=== PATIENT | female | born 1955 | race Caucasian/White ===

== ENCOUNTER 2016-07-31 09:44 | Outpatient (CLI) | payer BC | END 2016-07-31 09:45 | disposition home or self-care (01) | DX: M16.0 Bilateral primary osteoarthritis of hip (principal); M25.551 Pain in right hip ==

== ENCOUNTER 2016-10-15 07:51 | Day surgery (SDC) | payer BC ==
[2016-10-15] MEDS ORDERED: LACTATED RINGERS 1,000 ML IV ONE (09:00)
[2016-10-15] MEDS ORDERED: MIDAZOLAM 2 MG/2 ML VIAL IVP ONE (09:30)
[2016-10-15] MEDS ORDERED: fentaNYL 250 MCG/5 ML VIAL IVP ONE (09:30)
[2016-10-15] MEDS ORDERED: SIMETHICONE 40 MG/0.6 ML 30 ML BOTTLE PO ONE (09:59)
== END 2016-10-15 07:52 | disposition home or self-care (01) ==
PROC: 0DJD8ZZ Inspection of Lower Intestinal Tract, Via Natural or Artificial Opening Endoscopic (ICD-10-PCS; principal; 2016-10-15 09:00)
DX: Z12.11 Encounter for screening for malignant neoplasm of colon (principal); Z80.0 Family history of malignant neoplasm of digestive organs; K64.8 Other hemorrhoids
CPT/HCPCS: 45378; A9270; J3010; J7120

== ENCOUNTER 2017-01-16 15:01 | Outpatient (CLI) | payer BC ==
[2017-01-16 18:51] LABS: THYROID STIMULATING HORMONE 0.23 uIU/mL (0.34-5.60)
== END 2017-01-16 15:02 | disposition home or self-care (01) ==
LOC: LAB.F 15:01
PROVIDERS: ATTEND Physician Assistant Medical
DX: E05.00 Thyrotoxicosis with diffuse goiter without thyrotoxic crisis or storm (principal)
CPT/HCPCS: 36415; 84439; 84443; 84481

== ENCOUNTER 2017-02-18 11:17 | Outpatient (CLI) | payer BC ==
--- NOTE | 2017-02-18 13:02 | XRAY Report ---
TWO VIEW RIGHT SHOULDER: 02/18/2017 CLINICAL INDICATION: Pain. FINDINGS: Oblique and scapular Y views of the right shoulder demonstrate no evidence of acute fractu re or dislocation. There is calcification in the expected location of the distal supraspinatus tendon , compatible with calcific tendinitis. No radiopaque foreign body is seen in the soft tissues. IMPRESSION: LIKELY CALCIFIC TENDINITIS. JOB #: [id number] EXT JOB #:[id number]
== END 2017-02-18 11:18 | disposition home or self-care (01) ==
LOC: DI 11:17
PROVIDERS: ATTEND Physician Assistant Medical
DX: M25.511 Pain in right shoulder (principal)

== ENCOUNTER → 2017-03-25 | Outpatient (CLI) | payer BC ==
[2017-03-25 11:40] LABS: THYROID STIMULATING HORMONE 1.38 uIU/mL (0.34-5.60)
== END ==
LOC: LAB.F 17:22
PROVIDERS: ATTEND Physician Assistant Medical
DX: E05.00 Thyrotoxicosis with diffuse goiter without thyrotoxic crisis or storm (principal); Z79.899 Other long term (current) drug therapy
CPT/HCPCS: 36415; 84439; 84443; 84481

== ENCOUNTER 2017-04-10 15:27 | Outpatient (CLI) | payer BC ==
--- NOTE | 2017-04-11 10:21 | Mammography Report ---
DIGITAL SCREENING MAMMOGRAM: 04/10/2017 CLINICAL INDICATION: A 61-year-old with history of late childbearing, family history of breast cancer , history of benign left breast biopsy, for screening. COMPARISON: 12/2015, 07/2014, 06/2013, 12/2012, 05/2012, 11/2011, 04/2011, 02/2011, 02/2010. TECHNIQUE: Routine CC and MLO projections were obtained of the breasts. FINDINGS: The breasts again demonstrate heterogeneously dense fibroglandular parenchyma bilaterally. Postbiopsy changes in the left upper inner quadrant are stable. A few coarse, typically benign calci fications are present. No suspicious masses, clustered microcalcifications, or regions of architectur al distortion are identified. IMPRESSION: BENIGN FINDINGS. RECOMMENDATION: ROUTINE ANNUAL SCREENING UNLESS OTHERWISE CLINICALLY INDICATED. BIRADS CATEGORY 2-BENIGN FINDINGS. STANDARD QUALIFYING STATEMENTS 1. This examination was reviewed with the aid of Computer-Aided Detection (CAD). 2. A negative or benign imaging report should not delay biopsy if clinically suspicious findings are present. Consider surgical consultation if warranted. More than 5% of cancers are not identified by i maging. 3. Dense breasts may obscure an underlying neoplasm. JOB #: [id number] EXT JOB #:[id number]
== END 2017-04-10 15:28 | disposition home or self-care (01) ==
LOC: DI 15:27
PROVIDERS: ATTEND Physician Assistant Medical
DX: Z12.31 Encounter for screening mammogram for malignant neoplasm of breast (principal); Z80.3 Family history of malignant neoplasm of breast
CPT/HCPCS: 77067

== ENCOUNTER 2017-04-10 15:27 | Outpatient (CLI) | payer BC ==
--- NOTE | 2017-04-11 11:53 | DEXA Report ---
DEXA SCAN: 04/10/2017 CLINICAL INDICATION: Postmenopausal screening. TECHNIQUE: Dual energy x-ray absorptiometry (DXA) was performed on a YPlan system. Regions measured are the AP spine, femoral neck, and, if needed, forearm. COMPARISON: None. In accordance with the International Society for Clinical Densitometry (ISCD) guidelines, data from previous exams may be reanalyzed using current recommendations and techniques. This is done to allow a more accurate basis for comparison with the current study. FINDINGS: The data for the lumbar spine is as follows: REGION BMD (g/cm/cm) T-SCORE Z-SCORE L1 0.915 -1.8 -0.5 L2 0.959 -2.0 -0.8 L3 1.014 -1.5 -0.3 L4 1.024 -1.5 -0.2 TOTAL 0.980 -1.7 -0.4 NOTE: All evaluable vertebrae are used for classification. The data for the hip is as follows: REGION BMD (g/cm/cm) T-SCORE Z-SCORE Neck 0.787 -1.8 -0.6 TOTAL 0.786 -1.8 -0.8 NOTE: The femoral neck or total proximal femur, whichever is lowest, is used for classification. IMPRESSION: THE WHO CLASSIFICATION BASED ON THE INTERNATIONAL REFERENCE STANDARD IS OSTEOPENIA. THE FRACTURE RISK IS INCREASED. RECOMMENDATION: Patients with diagnosis of osteoporosis or osteopenia should have regular bone mineral density assessment. For those eligible for Medicare, routine testing is allowed once every 2 years. Testing frequency can be increased for patients who have rapidly progressing disease or for those who are receiving medical therapy to restore bone mass. COMMENT: World Health Organization (WHO) definitions for osteoporosis and osteopenia: NORMAL BMD: T-score at -1.0 or higher, fracture risk is low. OSTEOPENIA BMD: T-score between -1.0 and -2.5, fracture risk is increased. OSTEOPOROSIS BMD: T-score at -2.5 or lower, fracture risk high. National Osteoporosis Foundation recommends: 1. Obtain adequate dietary calcium (at least 1200 mg per day) and vitamin D (400 -800 international units per day). 2. Participate, as appropriate, in regular weightbearing and muscle- strengthening exercise. 3. Avoid tobacco use and reduce alcohol and caffeine intake. 4. For more detailed information see the website at www.NOF.org. MTDD
== END 2017-04-10 15:28 | disposition home or self-care (01) ==
LOC: DI 15:27
PROVIDERS: ATTEND Physician Assistant Medical
DX: Z13.820 Encounter for screening for osteoporosis (principal); M85.89 Other specified disorders of bone density and structure, multiple sites; Z78.0 Asymptomatic menopausal state
CPT/HCPCS: 77080

== ENCOUNTER 2017-10-09 07:25 | Outpatient (CLI) | payer OTHER ==
[2017-10-09 10:16] LABS: EOSINOPHILS # (AUTO) 0.2 10^3/uL (0.0-0.7); EOSINOPHILS % (AUTO) 3.7 %; HGB - HEMOGLOBIN 12.3 g/dL (12.0-16.0); LYMPHOCYTES # (AUTO) 1.3 10^3/uL (1.5-3.5); MEAN CORPUSCULAR HEMOGLOBIN 31.1 pg (27.0-31.0); MEAN CORPUSCULAR HGB CONC 33.5 g/dL (32.0-36.0); MEAN CORPUSCULAR VOLUME 92.7 fL (81.0-99.0); MEAN PLATELET VOLUME 8.7 fL (7.9-10.8); MONOCYTES # (AUTO) 0.5 10^3/uL (0.0-1.0); MONOCYTES % (AUTO) 11.6 %; NEUTROPHILS # (AUTO) 2.6 10^3/uL (1.5-6.6); NEUTROPHILS % (AUTO) 55.7 %; PLT - PLATELET COUNT 288 10^3/uL (130-450); RED BLOOD COUNT 3.96 10^6/uL (4.20-5.40); RED CELL DISTRIBUTION WIDTH 13.6 % (12.0-15.0); WHITE BLOOD COUNT 4.6 x10^3/uL (4.8-10.8)
[2017-10-09 10:37] LABS: ALBUMIN 4.3 g/dL (3.2-5.5); ALBUMIN/GLOBULIN RATIO 1.6 (1.0-2.2); ALKALINE PHOSPHATASE 66 IU/L (42-121); ALT ALANINE AMINOTRANSFERASE 45 IU/L (10-60); AST ASPARTATE AMINOTRANSFERASE 26 IU/L (10-42); BILIRUBIN,TOTAL 0.8 mg/dL (0.2-1.0); BUN - BLOOD UREA NITROGEN 11 mg/dL (6-20); CALCIUM 9.1 mg/dL (8.5-10.3); CARBON DIOXIDE - CO2 27 mmol/L (21-32); CHLORIDE 103 mmol/L (101-111); CHOL/HDL RATIO 2.8 (<4.4); CHOLESTEROL 220 mg/dL; CREATININE 0.7 mg/dL (0.4-1.0); GFR - MDRD 84 (>89); GLUCOSE 99 mg/dL (70-100); HDL CHOLESTEROL 79 mg/dL; LDL CHOLESTEROL,CALCULATED 132 mg/dL; LDL/HDL RATIO 1.7 (<4.4); SODIUM 137 mmol/L (135-145); VLDL CHOLESTEROL 9 mg/dL
[2017-10-09 10:43] LABS: THYROID STIMULATING HORMONE 6.7 uIU/mL (0.34-5.60)
[2017-10-09 10:45] LABS: FREE T4 (FREE THYROXINE) 0.91 ng/dL (0.58-1.64)
[2017-10-10 09:15] LABS: HEPATITIS C ANTIBODY NON-REACTIVE (NON-REACTIVE)
== END 2017-10-09 07:26 | disposition home or self-care (01) ==
LOC: LAB.F 07:25
PROVIDERS: ATTEND Physician Assistant Medical
DX: Z00.00 Encounter for general adult medical examination without abnormal findings (principal); E05.00 Thyrotoxicosis with diffuse goiter without thyrotoxic crisis or storm; Z79.899 Other long term (current) drug therapy; Z11.59 Encounter for screening for other viral diseases; Z72.89 Other problems related to lifestyle
CPT/HCPCS: 36415; 80053; 80061; 83721; 84439; 84443; 84481; 85025; 86803

== ENCOUNTER 2017-11-18 15:08 | Outpatient (CLI) | payer OTHER ==
[2017-11-18 18:14] LABS: THYROID STIMULATING HORMONE 4.76 uIU/mL (0.34-5.60)
[2017-11-18 18:16] LABS: FREE T4 (FREE THYROXINE) 0.94 ng/dL (0.58-1.64)
== END 2017-11-18 15:09 | disposition home or self-care (01) ==
LOC: LAB.F 15:08
PROVIDERS: ATTEND Physician Assistant Medical
DX: Z79.899 Other long term (current) drug therapy (principal); E05.00 Thyrotoxicosis with diffuse goiter without thyrotoxic crisis or storm
CPT/HCPCS: 36415; 84439; 84443

== ENCOUNTER 2018-08-04 14:51 | Outpatient (CLI) | payer BC, OTHER ==
--- NOTE | 2018-08-05 09:22 | Mammography Report ---
Reason: SCREENING MAMMO Procedure Date: 08/04/2018 Accession Number: [id number] / [id number] Procedure: LYNDSEY - Screening Mammo w/Rock CPT Code: FULL RESULT: EXAM: Screening Mammo w/Rock DATE: 08/04/2018 3:54 PM CLINICAL HISTORY: Screening encounter. History of late childbearing and history of left breast biopsy. Family history of breast cancer in the mother at the age of 74. TECHNIQUE: Bilateral CC and MLO views were obtained. COMPARISON: 04/10/2017 through 07/23/2013. FINDINGS: The breasts demonstrate scattered fibroglandular densities bilaterally. A biopsy clip is seen in the left breast, typically benign. No suspicious masses, clustered microcalcifications, or regions of architectural distortion are identified. IMPRESSION: Benign findings RECOMMENDATION: Routine annual screening unless otherwise clinically indicated. BIRADS CATEGORY 2: Benign findings STANDARD QUALIFYING STATEMENTS: 1. This examination was not reviewed with the aid of Computer-Aided Detection (CAD). 2. A negative or benign imaging report should not preclude biopsy if clinically suspicious findings are present. 3. Dense breasts may obscure an underlying neoplasm. 4. This examination was reviewed with the aid of 3D breast imaging (tomosynthesis).
== END 2018-08-04 14:52 | disposition home or self-care (01) ==
LOC: DI 14:51
PROVIDERS: ATTEND Physician Assistant Medical
DX: Z12.31 Encounter for screening mammogram for malignant neoplasm of breast (principal); Z80.3 Family history of malignant neoplasm of breast
CPT/HCPCS: 77063; 77067

== ENCOUNTER 2018-08-28 16:06 | Outpatient (CLI) | payer BC ==
[2018-08-29 13:25] LABS: THYROID STIMULATING HORMONE 5.91 uIU/mL (0.34-5.60)
[2018-08-29 13:26] LABS: FREE T4 (FREE THYROXINE) 0.87 ng/dL (0.58-1.64)
== END 2018-08-28 16:07 | disposition home or self-care (01) ==
LOC: LAB.F 16:06
PROVIDERS: ATTEND Physician Assistant Medical
DX: Z79.899 Other long term (current) drug therapy (principal); E05.00 Thyrotoxicosis with diffuse goiter without thyrotoxic crisis or storm
CPT/HCPCS: 36415; 84439; 84443; 84480; 84481

== ENCOUNTER 2020-04-19 07:11 | Outpatient (CLI) | payer BC, OTHER ==
[2020-04-19 15:10] LABS: EOSINOPHILS # (AUTO) 0.2 10^3/uL (0.0-0.7); EOSINOPHILS % (AUTO) 3.8 %; HGB - HEMOGLOBIN 12.3 g/dL (12.0-16.0); LYMPHOCYTES # (AUTO) 1.2 10^3/uL (1.5-3.5); LYMPHOCYTES % (AUTO) 29.8 %; MEAN CORPUSCULAR HEMOGLOBIN 31.5 pg (27.0-31.0); MEAN CORPUSCULAR HGB CONC 32.2 g/dL (32.0-36.0); MEAN CORPUSCULAR VOLUME 97.9 fL (81.0-99.0); MEAN PLATELET VOLUME 10.4 fL (7.9-10.8); MONOCYTES # (AUTO) 0.5 10^3/uL (0.0-1.0); MONOCYTES % (AUTO) 11.5 %; NEUTROPHILS # (AUTO) 2.2 10^3/uL (1.5-6.6); NEUTROPHILS % (AUTO) 53.9 %; PLT - PLATELET COUNT 366 10^3/uL (130-450); RED CELL DISTRIBUTION WIDTH 12.7 % (12.0-15.0)
[2020-04-19 15:43] LABS: ALBUMIN 4.3 g/dL (3.2-5.5); ALBUMIN/GLOBULIN RATIO 1.5 (1.0-2.2); ALKALINE PHOSPHATASE 59 IU/L (42-121); ALT ALANINE AMINOTRANSFERASE 19 IU/L (10-60); AST ASPARTATE AMINOTRANSFERASE 17 IU/L (10-42); BILIRUBIN,TOTAL 0.9 mg/dL (0.2-1.0); BUN - BLOOD UREA NITROGEN 15 mg/dL (6-20); CALCIUM 9.4 mg/dL (8.5-10.3); CARBON DIOXIDE - CO2 27 mmol/L (21-32); CHLORIDE 103 mmol/L (101-111); CHOL/HDL RATIO 2.6 (<4.4); CHOLESTEROL 212 mg/dL; CREATININE 0.5 mg/dL (0.4-1.0); GLUCOSE 96 mg/dL (70-100); HDL CHOLESTEROL 81 mg/dL; LDL CHOLESTEROL,CALCULATED 120 mg/dL; LDL/HDL RATIO 1.5 (<4.4); SODIUM 138 mmol/L (135-145); TOTAL PROTEIN 7.2 g/dL (6.7-8.2); VLDL CHOLESTEROL 11 mg/dL
== END 2020-04-19 07:12 | disposition home or self-care (01) ==
LOC: LAB.S 07:11
PROVIDERS: ATTEND Registered Nurse
DX: I10 Essential (primary) hypertension (principal); E05.00 Thyrotoxicosis with diffuse goiter without thyrotoxic crisis or storm; Z79.899 Other long term (current) drug therapy; Z91.89 Other specified personal risk factors, not elsewhere classified
CPT/HCPCS: 36415; 80053; 80061; 83721; 84443; 85025

== ENCOUNTER 2020-06-08 12:40 | Outpatient (CLI) | payer OTHER ==
--- NOTE | 2020-06-09 13:22 | Mammography Report ---
BILATERAL DIGITAL SCREENING MAMMOGRAM 3D/2D: 06/08/2020 CLINICAL: Routine screening. Comparison is made to exams dated: 08/04/2018 mammogram, 04/10/2017 mammogram, 12/29/2015 mammogram, and 08/10/2014 mammogram - [facility]. The tissue of both breasts is heterogeneously de nse. This may lower the sensitivity of mammography. No significant masses, calcifications, or other findings are seen in either breast. There has been no significant interval change. IMPRESSION: NEGATIVE There is no mammographic evidence of malignancy. A 1 year screening mammogram is recommended. This exam was interpreted at Station ID: [id number]. NOTE: For mammograms, a report in lay terms will be sent to the patient. Approximately 15% of breast malignancies will not be visualized mammographically. In the management of a palpable breast mass, a negative mammogram must not discourage biopsy of a clinically suspicious lesion. Electronically Signed By: Verona leahy/alfredo:06/08/2020 13:55:47 ACR BI-RADS Category 1: Negative 3341F PARENCHYMAL PATTERN: (D) - The breast(s) demonstrate(s) heterogeneously dense fibroglandular ivy nielsen. BI-RADS CATEGORY: (1) - 1 RECOMMENDATION: (ANNUAL) - Recommend routine annual screening mammography. [id number] 1 year screening LATERALITY: (B)
== END 2020-06-08 12:41 | disposition home or self-care (01) ==
LOC: DI 12:40
PROVIDERS: ATTEND Registered Nurse
DX: Z12.31 Encounter for screening mammogram for malignant neoplasm of breast (principal)
CPT/HCPCS: 77063; 77067

== ENCOUNTER 2020-06-08 12:41 | Outpatient (CLI) | payer OTHER ==
--- NOTE | 2020-06-08 17:27 | DEXA Report ---
PROCEDURE: Dexa Spine and/or Hip INDICATIONS: SCREENING FOR OSTEOPOROSIS TECHNIQUE: Dual energy x-ray absorptiometry (DXA) was performed on a [employer]ablo System. Regions measur ed are the AP Spine, femoral neck, and if needed forearm. COMPARISON: 04/10/2017. FINDINGS: Lumbar Spine: Bone Mineral Density 1.006 g/cm/cm,T score -1.4, osteopenia Left Hip: Bone Mineral Density 0.792 g/cm/cm,T score -1.7, osteopenia Left Femoral Neck: Bone Mineral Density 0.764 g/cm/cm, T score -2.0, osteopenia (T score greater or equal to -1.0: NORMAL) (T score from -1.1 to -2.4: OSTEOPENIA) (T score less than or equal to -2.5 to: OSTEOPOROSIS) Impression: Osteopenia. Bone mineral density is unchanged compared to prior examination. Patients with diagnosis of osteoporosis or osteopenia should have regular bone mineral density assess ment. For those eligible for Medicare, routine testing is allowed once every 2 years. Testing frequ ency can be increased for patients who have rapidly progressing disease or for those who are receivin g medical therapy to restore bone mass. Reviewed by: Marycarmen Parks MD, PhD on 06/08/2020 5:26 PM PST Approved by: Marycarmen Parks MD, PhD on 06/08/2020 5:26 PM PST Station ID: [id number]
== END 2020-06-08 12:42 | disposition home or self-care (01) ==
LOC: DI 12:41
PROVIDERS: ATTEND Registered Nurse
DX: Z13.820 Encounter for screening for osteoporosis (principal); M85.89 Other specified disorders of bone density and structure, multiple sites
CPT/HCPCS: 77080

== ENCOUNTER 2020-06-30 07:26 | Outpatient (CLI) | payer OTHER ==
[2020-06-30 15:37] LABS: ALBUMIN 4.5 g/dL (3.2-5.5); ALBUMIN/GLOBULIN RATIO 1.5 (1.0-2.2); BILIRUBIN,TOTAL 0.8 mg/dL (0.2-1.0); CALCIUM 9.7 mg/dL (8.5-10.3); CREATININE 0.6 mg/dL (0.4-1.0); TOTAL PROTEIN 7.6 g/dL (6.7-8.2)
[2020-06-30 20:23] LABS: BASOPHILS # (AUTO) 0.1 10^3/uL (0.0-0.1); BASOPHILS % (AUTO) 1.1 %; EOSINOPHILS # (AUTO) 0.2 10^3/uL (0.0-0.7); EOSINOPHILS % (AUTO) 3.4 %; HGB - HEMOGLOBIN 11.9 g/dL (12.0-16.0); LYMPHOCYTES # (AUTO) 1.9 10^3/uL (1.5-3.5); LYMPHOCYTES % (AUTO) 30.5 %; MEAN CORPUSCULAR HEMOGLOBIN 30.8 pg (27.0-31.0); MEAN CORPUSCULAR HGB CONC 31.2 g/dL (32.0-36.0); MEAN PLATELET VOLUME 10.3 fL (7.9-10.8); MONOCYTES # (AUTO) 0.7 10^3/uL (0.0-1.0); MONOCYTES % (AUTO) 11.5 %; NEUTROPHILS # (AUTO) 3.3 10^3/uL (1.5-6.6); NEUTROPHILS % (AUTO) 52.5 %; PLT - PLATELET COUNT 349 10^3/uL (130-450); RED BLOOD COUNT 3.86 10^6/uL (4.20-5.40); RED CELL DISTRIBUTION WIDTH 12.9 % (12.0-15.0); WHITE BLOOD COUNT 6.3 x10^3/uL (4.8-10.8)
== END 2020-06-30 07:27 | disposition home or self-care (01) ==
LOC: LAB.S 07:26
PROVIDERS: ATTEND Family Medicine
DX: R10.9 Unspecified abdominal pain (principal)
CPT/HCPCS: 36415; 80053; 82150; 83690; 85025

== ENCOUNTER 2020-07-01 06:45 | Outpatient (CLI) | payer OTHER ==
--- NOTE | 2020-07-01 07:51 | Ultrasound Report ---
PROCEDURE: Abdomen Limited INDICATIONS: ABD PAIN TECHNIQUE: Real-time scanning was performed of the abdominal and retroperitoneal organs, with image documentatio n. COMPARISON: None. FINDINGS: Liver: Liver is normal in size and homogeneous in echotexture. Gallbladder: Moderate demonstrates sludge. Wall thickness is within normal limits measuring 2 mm. Biliary ducts: Intrahepatic bile ducts are non-dilated. Extrahepatic bile duct caliber measures 4 m m. Normal is 6-7 mm or less in diameter, or 10 mm or less post-cholecystectomy. Pancreas: Visualized portions of the pancreas are sonographically normal. Kidneys: Kidneys are normal in size and echotexture. Right kidney measures 11.2 cm long. No hydron ephrosis or nephrolithiasis. No solid masses. IVC: Intrahepatic inferior vena cava is patent. IMPRESSION: Unremarkable exam. Reviewed by: Nancy Quiles MD on 07/01/2020 7:50 AM PST Approved by: Nancy Quiles MD on 07/01/2020 7:50 AM [facility] Station ID: [id number]
== END 2020-07-01 06:46 | disposition home or self-care (01) ==
LOC: DI 06:45
PROVIDERS: ATTEND Family Medicine
DX: R10.9 Unspecified abdominal pain (principal)

== ENCOUNTER 2020-08-19 08:00 | Outpatient (CLI) | payer OTHER | END 2020-08-19 23:59 | disposition home or self-care (01) | LOC: LAB 08:00 | PROVIDERS: ATTEND Surgery | DX: Z01.812 Encounter for preprocedural laboratory examination (principal); Z20.822 Contact with and (suspected) exposure to COVID-19; K80.20 Calculus of gallbladder without cholecystitis without obstruction ==

== ENCOUNTER 2020-08-23 06:20 | Day surgery (SDC) | payer OTHER ==
[2020-08-23] MEDS ORDERED: LACTATED RINGERS 1,000 ML IV ONE ×3 (06:24→13:43)
[2020-08-23] MEDS ORDERED: ceFAZolin 2 GM/50 ML 2 GM/50 ML BAG IV ONE (06:24)
--- NOTE | 2020-08-23 07:48 | HISTORY & PHYSICAL EXAMINATION ---
Chief Complaint - Chief Complaint Chief Complaint: right upper quadrant pain Abdominal Pain HPI - Admitted From Admitted from: Direct admit - History Obtained From History obtained from: Patient Exam limitations: No limitations - History of Present Illness Severity at the worst: Moderate Pain Quality: Dull, Aching, Cramping Timing: Gradual onset Duration: Chronic PMH/PSH - Past Medical History Cardiovascular: positive: Murmur, Other Respiratory: positive: None Endocrine/Autoimmune: positive: None GI: positive: None : positive: None HEENT: positive: None Psych: positive: None Musculoskeletal: positive: Osteoarthritis Derm: positive: None MRSA Hx?: No - Past Surgical History 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 HEENT: positive: Tonsil/Adenoidectomy Social & Family Hx - Social History Does the pt smoke?: No Smoking Status: Never smoker Does the pt drink ETOH?: Yes Does the pt have substance abuse?: No - POLST Patient has POLST: No Meds/Allgy - Home Medications Home Medications: Ambulatory Orders Medication Instructions Recorded Confirmed methIMAzole [Methimazole] 5 mg PO DAILY 12/06/14 08/18/20 - Allergies Allergies/Adverse Reactions: Allergies Allergy/AdvReac Type Severity Reaction Status Date / Time No Known Drug Allergies Allergy Verified 08/18/20 12:19 Review of Systems - Other Findings Other Findings: 10 pt ros as above otherwise unremarkable Exam - Vital Signs Reviewed Vital Signs: Yes Vital Signs: Vital Signs x48h Temp Pulse Resp BP Pulse Ox 08/23/20 06:34 37.1 C 67 18 143/87 H 100 - Physical Exam General Appearance: positive: No acute distress, Alert Eyes Bilateral: positive: Normal inspection, PERRL, EOMI, No scleral icterus ENT: positive: No signs of dehydration Neck: positive: No JVD, Trachea midline Respiratory: positive: No respiratory distress Cardiovascular: positive: Regular rate & rhythm Abdomen: positive: No distention Neurologic/Psychiatric: positive: Oriented x3 Results - Diagnostic Imaging Results Diagnostic Imaging Results: positive: Read independently (gallbladder sludge) Impression/Plan - Problem List Problem List: chronic cholecystitis plan nathen veronalizzie smith held and consent obtained
--- NOTE | 2020-08-23 07:56 | ANESTHESIA ---
Pre-Anesthesia VS, & Labs - Diagnosis chronic cholecytitis - Procedure laparoscopic cholecytectomy Vital Signs: Temp Pulse Resp BP Pulse Ox 37.1 C 67 18 143/87 H 100 08/23/20 06:34 08/23/20 06:34 08/23/20 06:34 08/23/20 06:34 08/23/20 06:34 Height: 5 ft 5 in Weight (kg): 72.3 kg Body Mass Index: 26.5 BMI Classification: Overweight - NPO >8 hours - Is Patient ?: No - Lab Results Lab results reviewed: Yes Home Medications and Allergies methIMAzole [Methimazole] 5 mg PO DAILY 12/06/14 Allergies/Adverse Reactions: Allergies Allergy/AdvReac Type Severity Reaction Status Date / Time No Known Drug Allergies Allergy Verified 08/18/20 12:19 Anes History & Medical History - Anesthetic History Anesthesia Complications: reports: No previous complications Family history of Anesthesia Complications: Denies Family history of Malignant Hyperthermia: Denies - Medical History Cardiovascular: reports: Murmur, Other Pulmonary: reports: None Gastrointestinal: reports: None Urinary: reports: None Musculoskeletal: reports: Osteoarthritis Endocrine/Autoimmune: reports: None, Other (Graves) Skin: reports: None Smoking Status: Never smoker - Surgical History General: Appendectomy Eyes Ears Nose Throat (EENT): Tonsil/Adenoidectomy Gynecologic: section Exam General: Alert, Oriented x3, Cooperative Dental: WNL Mouth Openin Fingerbreadth Neck Mobility: Normal Mallampati classification: II Thyromental Distance: 4-6 cm Respiratory: Lungs clear, Normal breath sounds, No respiratory distress Cardiovascular: Regular rate Neurological: Normal speech Mental/Cognitive Status: Alert/Oriented X3, Normal for patient Cognitive Status: Within normal limits Plan Anesthesia Type: General Consent for Procedure(s) Verified and Reviewed: Yes Code Status: Attempt Resuscitation ASA classification: 2-Mild systemic disease Is this case an emergency?: No
[2020-08-23] MEDS ORDERED: ONDANSETRON 4 MG/2 ML VIAL IVP PRN ×3 (10:31→13:59)
[2020-08-23] MEDS ORDERED: HYDROmorphone 0.5 MG/0.5 ML SYRINGE IVP PRN (10:31)
[2020-08-23] MEDS ORDERED: fentaNYL 100 MCG/2 ML VIAL IVP PRN (10:31)
[2020-08-23] MEDS ORDERED: METOCLOPRAMIDE 10 MG/2 ML VIAL IVP PRN (10:31)
[2020-08-23] MEDS ORDERED: ATROPINE ABBOJECT 1 MG/10 ML SYRINGE IVP PRN (10:31)
[2020-08-23] MEDS ORDERED: ePHEDrine 50 MG/ML VIAL IVP PRN (10:31)
[2020-08-23] MEDS ORDERED: NALOXONE 0.4 MG/ML VIAL IVP PRN (10:31)
[2020-08-23] MEDS ORDERED: MORPHINE 2 MG/ML CARPUJECT IVP PRN (10:31)
[2020-08-23] MEDS ORDERED: LACTATED RINGERS 1,000 ML IV SCH (11:00)
[2020-08-23] MEDS ORDERED: BUPIVACAINE 0.25% PF 30 ML VIAL ONE (12:19)
[2020-08-23] MEDS ORDERED: LIDOCAINE-MPF 2% 5 ML VIAL ONE (12:21)
[2020-08-23] MEDS ORDERED: MIDAZOLAM 2 MG/2 ML VIAL ONE (12:23)
[2020-08-23] MEDS ORDERED: fentaNYL 100 MCG/2 ML VIAL ONE (12:23)
[2020-08-23] MEDS ORDERED: PROPOFOL 200 MG/20 ML VIAL IVP ONE (12:30)
[2020-08-23] MEDS ORDERED: BUPIVACAINE 0.25% PF 30 ML VIAL SUBQ ONE (12:52)
--- NOTE | 2020-08-23 13:49 | OPERATIVE REPORT ---
Operative Report - General Procedure Date: 08/23/20 Planned Procedure: lap verona Pre-Op Diagnosis: chronic cholecystitis Procedure Performed: lap verona Post Op Diagnosis: chronic cholecystitis - Procedure Note Primary Surgeon: ayesha zuñiga Anesthesia Technique: General ET tube Pathology: gallbladder Estimated Blood Loss (mL): 5 Drain/Tube Type: Other (none) Findings: as above Complications: chronic cholecystitis
[2020-08-23] MEDS ORDERED: HYDROcod/ACETAM 5/325 MG TABLET PO PRN ×2 (13:53→13:59)
[2020-08-23] MEDS ORDERED: oxyCODONE 5 MG TABLET PO PRN (14:03)
[2020-08-23 14:27] VITALS: BP 153/68
[2020-08-23] MEDS ORDERED: oxyCODONE 5 MG TABLET ONE (14:28)
--- NOTE | 2020-08-23 14:33 | OPERATIVE REPORT ---
DATE OF SERVICE: 08/23/2020 Physician: Abhijeet Dykes MD PREOPERATIVE DIAGNOSIS: Chronic cholecystitis. POSTOPERATIVE DIAGNOSIS: Chronic cholecystitis. PROCEDURE PERFORMED: Laparoscopic cholecystectomy. 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 ANESTHESIA: 1. General endotracheal anesthesia. 2. Local anesthesia with Marcaine. COMPLICATIONS: None. SPECIMENS: Gallbladder. ESTIMATED BLOOD LOSS: 5 mL DRAINS: None. FINDINGS: Floppy gallbladder with a small cystic duct. The common hepatic and common bile duct were easily evident without dissection. Healthy-appearing liver. INDICATIONS FOR PROCEDURE: The patient is a healthy, active 65-year-old with classic chronic cholecy stitis type symptoms. She has not had signs or symptoms of choledocholithiasis. She presents for a laparoscopic cholecystectomy. Risks discussed, alternatives discussed. All questions answered and c onsent obtained. DESCRIPTION OF PROCEDURE: The patient was properly identified and brought to the operating room and placed in a supine position. She voided prior to surgery. General endotracheal anesthesia was induc ed. Sequential compression devices and orogastric tube were placed. She was prepped and draped in a sterile fashion and given preoperative antibiotics. Local anesthetic was given to incision areas. An infraumbilical incision was made. Fascia was lifted upwards and abdomen entered with the Veress n eedle. CO2 was insufflated to a pressure of 15. An 11 mm Visiport trocar with a 30-degree scope was placed under vision. There was no evidence of injury from Veress needle or trocar placement. Under direct vision, two 5 mm trocars were placed in the right upper quadrant and an 11 mm trocar was plac ed in the epigastrium. Body of the gallbladder was retracted anterior. The infundibulum was retract ed right lateral and caudad. The cystic duct and cystic artery were both clearly defined and a large bare cystic plate area or window was carefully created. The cystic duct and cystic artery were then both clipped at the gallbladder and twice more proximal and sharply divided. The gallbladder was mo bilized off from the bed of the liver without spillage of bile or stone material. The gallbladder wa s brought out through the epigastric site. Hemostasis was assured. Clips were secure. Trocars were removed under direct vision and CO2 evacuated. Fascia at the epigastrium was closed with an interru pted 0 Vicryl. Fascia at the infraumbilical site was closed with a running 0 Vicryl suture. Skin wa s closed with buried interrupted 4-0 Monocryl. Dressings were applied. She tolerated the procedure very well. TD: 08/23/2020 14:22
--- NOTE | 2020-08-23 15:34 | ANESTHESIA POST OP EVALUATION ---
Anesthesia Post Eval - Post Anesthesia Eval Vitals: Last Vital Signs Temp 36.5 C 08/23/20 14:17 Pulse 66 08/23/20 14:17 Resp 15 08/23/20 14:17 BP 153/68 H 08/23/20 14:17 Pulse Ox 98 08/23/20 14:17 CV Function Including HR & BP: positive: Stable Pain Control: positive: Satisfactory Nausea & Vomiting: positive: Negative Mental Status: positive: Patient Participates Respiratory Status: Airway Patent Hydration Status: Satisfactory Anesthesia Complications: positive: None
== END 2020-08-23 06:21 | disposition home or self-care (01) ==
LOC: SDS 06:20
PROVIDERS: ATTEND Surgery
PROC: 0FT44ZZ Resection of Gallbladder, Percutaneous Endoscopic Approach (ICD-10-PCS; principal; 2020-08-23 07:30)
DX: K81.1 Chronic cholecystitis (principal); E66.3 Overweight; Z68.26 Body mass index [BMI] 26.0-26.9, adult
CPT/HCPCS: 47562; A9270; J0690; J7120

== ENCOUNTER 2021-05-29 15:43 | Outpatient (CLI) | payer MEDICARE, OTHER ==
[2021-05-29 20:14] LABS: T4 (THYROXINE) 7.13 ug/dL (6.09-12.23)
[2021-05-29 20:17] LABS: THYROID STIMULATING HORMONE 4.65 uIU/mL (0.34-5.60)
== END 2021-05-29 15:44 | disposition home or self-care (01) ==
LOC: LAB.S 15:43
PROVIDERS: ATTEND Registered Nurse
DX: E05.00 Thyrotoxicosis with diffuse goiter without thyrotoxic crisis or storm (principal)
CPT/HCPCS: 36415; 84436; 84443; 84480

== ENCOUNTER 2021-07-03 09:54 | Outpatient (CLI) | payer MEDICARE, OTHER ==
--- NOTE | 2021-07-04 14:10 | Mammography Report ---
BILATERAL DIGITAL SCREENING MAMMOGRAM 3D/2D WITH EXAGGERATED CC: 07/03/2021 CLINICAL: Family history of breast cancer. Comparison is made to exams dated: 06/08/2020 mammogram, 08/04/2018 mammogram, 04/10/2017 mammogram, an d 12/29/2015 mammogram - [facility]. The tissue of both breasts is heterogeneously d ense. This may lower the sensitivity of mammography. There is a biopsy clip in the left breast. No significant masses, calcifications, or other findings are seen in either breast. There has been no significant interval change. IMPRESSION: NEGATIVE There is no mammographic evidence of malignancy. A 1 year screening mammogram is recommended. This exam was interpreted at Station ID: [id number]. NOTE: For mammograms, a report in lay terms will be sent to the patient. Approximately 15% of breast malignancies will not be visualized mammographically. In the management of a palpable breast mass, a negative mammogram must not discourage biopsy of a clinically suspicious lesion. Electronically Signed By: Gerardo Hernandez M.D. atcheri/alfredo:07/03/2021 14:09:53 ACR BI-RADS Category 1: Negative 3341F PARENCHYMAL PATTERN: (D) - The breast(s) demonstrate(s) heterogeneously dense fibroglandular ivy nielsen. BI-RADS CATEGORY: (1) - 1 RECOMMENDATION: (ANNUAL) - Recommend routine annual screening mammography. 20220704 1 year screening LATERALITY: (B)
== END 2021-07-03 09:55 | disposition home or self-care (01) ==
LOC: DI.S 09:54
DX: Z12.31 Encounter for screening mammogram for malignant neoplasm of breast (principal)

== ENCOUNTER 2021-08-02 16:10 | Outpatient (CLI) | payer MEDICARE, OTHER ==
[2021-08-02 20:46] LABS: THYROID STIMULATING HORMONE 1.79 uIU/mL (0.34-5.60)
[2021-08-02 20:48] LABS: FREE T3 3.68 pg/mL (2.5-3.9)
== END 2021-08-02 16:11 | disposition home or self-care (01) ==
LOC: LAB.S 16:10
PROVIDERS: ATTEND Registered Nurse
DX: E05.00 Thyrotoxicosis with diffuse goiter without thyrotoxic crisis or storm (principal)
CPT/HCPCS: 36415; 84443; 84481

== ENCOUNTER 2021-09-25 14:02 | Outpatient (CLI) | payer MEDICARE, OTHER ==
--- NOTE | 2021-09-25 19:10 | Ultrasound Report ---
PROCEDURE: Pelvic w/Transvaginal INDICATIONS: FAM HIST OVARIAN CA TECHNIQUE: Real-time scanning was performed of the pelvic organs, with image documentation. Additional endovagi nal scanning was necessary due to incomplete visualization of the adnexal and endometrial structures by transabdominal scanning. COMPARISON: None. FINDINGS: No pathologic free abdominal or pelvic fluid. Uterus: Uterus is heterogenous and normal in size at 7.1 x 2.2 x 3.8 cm cm. The endometrium measure s 5 mm in combined thickness. Focal areas of endometrial thickening are noted to possibly reflecting polyps measuring 2 x 2 mm and 6 x 4 x 2 mm. Small amount of fluid in the endometrial canal. Ovaries: Right ovary measures 2.3 x 1.1 x 1.3 cm, 1.7 cc. Left ovary measures 2.5 x 0.9 x 1.7 cm, 2. 0 cc. IMPRESSION: 1. Focal endometrial thickening measures up to 4 x 6 mm. Consider follow-up MRI and/or biopsy Reviewed by: Dami Sauceda MD on 09/25/2021 6:08 PM [place] Approved by: Dami Sauceda MD on 09/25/2021 6:08 PM [place] Station ID: [id number]
== END 2021-09-25 14:03 | disposition home or self-care (01) ==
LOC: DI 14:02
PROVIDERS: ATTEND Obstetrics & Gynecology
DX: R93.89 Abnormal findings on diagnostic imaging of other specified body structures (principal)

== ENCOUNTER 2021-11-16 07:30 | Day surgery (SDC) | payer MEDICARE, OTHER ==
[~2021-11-16 07:30] MED LIST: ACETAMINOPHEN 500 MG TABLET PO ONE; CELECOXIB 100 MG CAPSULE PO ONE; GABAPENTIN 400 MG CAPSULE ONE
[2021-11-16] MEDS ORDERED: LACTATED RINGERS 1,000 ML IV ONE ×2 (08:00→10:31)
--- NOTE | 2021-11-16 08:29 | ANESTHESIA ---
Pre-Anesthesia VS, & Labs - Diagnosis thickened endometrium - Procedure hysteroscopy, D&C Vital Signs: Temp Pulse Resp BP Pulse Ox 36.5 C 73 17 133/92 H 100 11/16/21 07:47 11/16/21 07:47 11/16/21 07:47 11/16/21 07:47 11/16/21 07:47 Height: 5 ft 5 in Weight (kg): 66 kg Body Mass Index: 24.2 BMI Classification: Healthy weight - NPO >8 hours - Is Patient ?: No Home Medications and Allergies Home Medications: Ambulatory Orders Tolterodine Tartrate [Detrol] 10 mg PO DAILY 11/15/21 methIMAzole [Methimazole] 5 mg PO DAILY 12/06/14 Tolterodine Tartrate [Detrol] 10 mg PO DAILY 11/15/21 Allergies/Adverse Reactions: Allergies Allergy/AdvReac Type Severity Reaction Status Date / Time No Known Drug Allergies Allergy Verified 08/18/20 12:19 Anes History & Medical History - Anesthetic History Anesthesia Complications: reports: Post-Operative Nausea/Vomiting - Medical History Cardiovascular: reports: Arrhythmia (with Graves) Pulmonary: reports: None Gastrointestinal: reports: Cholelithiasis Urinary: reports: Other Musculoskeletal: reports: Osteoarthritis Endocrine/Autoimmune: reports: HyPOthyroidism, Other (Grave's) Skin: reports: None Smoking Status: Never smoker - Surgical History General: reports: Cholecystectomy Eyes Ears Nose Throat (EENT): reports: Tonsil/Adenoidectomy Gynecologic: reports: section, Tubal ligation Orthopedic: reports: Other Exam General: Alert, Oriented x3 Dental: WNL Mouth Opening: Greater than 4 Fingerbreadths Mallampati classification: II Thyromental Distance: greater than 6 cm Respiratory: Lungs clear Cardiovascular: Regular rate Plan Anesthesia Type: General Consent for Procedure(s) Verified and Reviewed: Yes Code Status: Attempt Resuscitation ASA classification: 2-Mild systemic disease Is this case an emergency?: No
[2021-11-16] MEDS ORDERED: LIDOCAINE 2%-EPI 1:100000 20 ML MDV ONE (08:43)
[2021-11-16] MEDS ORDERED: BUPIVACAINE 0.25% PF 30 ML VIAL ONE ×2 (08:44→09:13)
[2021-11-16] MEDS ORDERED: LIDOCAINE-MPF 2% 5 ML VIAL ONE (08:47)
[2021-11-16] MEDS ORDERED: fentaNYL 100 MCG/2 ML VIAL ONE (08:47)
[2021-11-16] MEDS ORDERED: MORPHINE 2 MG/ML CARPUJECT IVP PRN (08:47)
[2021-11-16] MEDS ORDERED: HYDROmorphone 0.5 MG/0.5 ML SYRINGE IVP PRN (08:47)
[2021-11-16] MEDS ORDERED: PROPOFOL 200 MG/20 ML VIAL IVP ONE (08:47)
[2021-11-16] MEDS ORDERED: fentaNYL 100 MCG/2 ML VIAL IVP PRN (08:47)
[2021-11-16] MEDS ORDERED: ONDANSETRON 4 MG/2 ML VIAL IVP PRN (08:47)
[2021-11-16] MEDS ORDERED: ATROPINE ABBOJECT 1 MG/10 ML SYRINGE IVP PRN (08:47)
[2021-11-16] MEDS ORDERED: NALOXONE 0.4 MG/ML VIAL IVP PRN (08:47)
[2021-11-16] MEDS ORDERED: MIDAZOLAM 2 MG/2 ML VIAL ONE (08:47)
[2021-11-16] MEDS ORDERED: ePHEDrine 50 MG/ML VIAL IVP PRN (08:47)
[2021-11-16] MEDS ORDERED: METOCLOPRAMIDE 10 MG/2 ML VIAL IVP PRN (08:47)
[2021-11-16] MEDS ORDERED: SCOPOLAMINE PATCH TOP ONE (08:51)
[2021-11-16] MEDS ORDERED: SEVOFLURANE 250 ML LIQUID INH ONE (08:57)
[2021-11-16] MEDS ORDERED: LACTATED RINGERS 1,000 ML IV SCH (09:00)
[2021-11-16] MEDS ORDERED: VASOPRESSIN 20 UNIT/ML VIAL ONE (09:51)
[2021-11-16] MEDS ORDERED: BUPIVACAINE 0.25% PF 30 ML VIAL SUBQ ONE ×2 (10:01)
[2021-11-16] MEDS ORDERED: VASOPRESSIN 20 UNIT/ML VIAL IVP ONE ×2 (10:01)
[2021-11-16] MEDS ORDERED: ONDANSETRON 4 MG/2 ML VIAL ONE (10:03)
[2021-11-16] MEDS ORDERED: DEXAMETHASONE 4 MG/ML VIAL ONE (10:03)
--- NOTE | 2021-11-16 11:05 | OPERATIVE REPORT ---
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 She has a markedly stenotic cervix and was unable to undergo sampling in clinic. She presents for hysteroscopy D&C. Findings: Cervix obliterated and flush with the vaginal wall. Cervical os limited to small pinpoint dimple. Marked cervical stenosis. Markedly atrophic vaginal tissue. Uterus sounds to 6.5 cm. Cloudy fluid released with entrance into the uterine cavity. Complications: None - Other Other Information/Narrative: Risks benefits and alternatives to the procedure were reviewed. Consent was again confirmed. Patient was taken to the operating room where she underwent general anesthesia. She was positioned in dorsolithotomy position with legs resting in yellowfin stirrups. She was prepped and draped in the usual sterile fashion. Preoperative antibiotics were not indicated. Preoperative checklist was performed. Exam under anesthesia was performed. Speculum was placed in the vagina and the cervix was visualized. As noted in findings above, the portio of the cervix was obliterated and the cervical os was limited to a pinpoint dimple. It was difficult to grasp the atrophic tissue with either a tenaculum or Allis clamp. A single-tooth tenaculum was eventually placed at the posterior cervical lip. Paracervical block was administered using a total of 20 cc of 0.25 bupivicaine was injected at the 4:00 and 8:00 positions lateral to the obliterated portio of the cervix. The cervical os was characterized by marked stenosis. A total of 8 cc of vasopressin 20:100 cc NS was injected into the cervix. (Patient was unable to obtain misoprostol ordered prior to procedure.) The cervical os was serially dilated with lacrimal duct dilators and then Hegar dilators. The small size of the cervix and the degree of stenosis would not allow for dilation past 6 mm. The hysteroscope was inserted into the partially dilated os to utilize hydrodilation towards dilation efforts without success. A sterile os finder was procured form clinic as well as endometrial biopsy pipelles. The os finder was able to dilate the internal os and white milky fluid was released from the uterine cavity. A EMB pipelle was inserted into the cavity and the uterus sounded to 6.5 cm. Sampling of the uterine cavity was performed with 5 passes of the pipelle, ensuring that each passage was inserted the full 6.5 cm of cavity length. Scant tissue and cloudy fluid was obtained. Continued efforts towards cervical dilation resulted in maceration of the tissue and efforts were aborted to avoid unintended trauma to the cervix and uterus. All instruments were removed from the uterus. Tenaculum was removed. Tenaculum sites were noted to be hemostatic. All instruments were removed from the vagina. Procedure was well-tolerated without complication.
[2021-11-16 12:04] VITALS: BP 134/76
--- NOTE | 2021-11-16 17:18 | ANESTHESIA POST OP EVALUATION ---
Anesthesia Post Eval - Post Anesthesia Eval Vitals: Last Vital Signs Temp 36.5 C 11/16/21 11:22 Pulse 61 11/16/21 11:55 Resp 14 11/16/21 11:55 BP 134/76 H 11/16/21 11:55 Pulse Ox 97 11/16/21 11:55 CV Function Including HR & BP: Stable Pain Control: Satisfactory Nausea & Vomiting: Negative Mental Status: Baseline Respiratory Status: Airway Patent Hydration Status: Satisfactory Anesthesia Complications: None
== END 2021-11-16 07:31 | disposition home or self-care (01) ==
LOC: SDS 07:30
PROVIDERS: ATTEND Obstetrics & Gynecology
PROC: 0UDB7ZX Extraction of Endometrium, Via Natural or Artificial Opening, Diagnostic (ICD-10-PCS; principal; 2021-11-16 08:45)
DX: R93.89 Abnormal findings on diagnostic imaging of other specified body structures (principal); Z80.41 Family history of malignant neoplasm of ovary; N88.2 Stricture and stenosis of cervix uteri
CPT/HCPCS: 58100; A9270; J3490; J7120

== ENCOUNTER 2023-08-06 07:28 | Day surgery (SDC) | payer MEDICARE, OTHER ==
[2023-08-06] MEDS ORDERED: LACTATED RINGERS 1,000 ML IV ONE (07:30)
--- NOTE | 2023-08-06 08:05 | ANESTHESIA ---
Pre-Anesthesia VS, & Labs - Diagnosis screening - Procedure colonoscopy Vital Signs: Temp Pulse Resp BP Pulse Ox O2 Flow Rate 36.3 C L 74 16 149/87 H 97 08/06/23 07:34 08/06/23 07:34 08/06/23 07:34 08/06/23 07:34 08/06/23 07:34 Height: 5 ft 5 in Weight (kg): 67 kg Body Mass Index: 24.5 BMI Classification: Normal - NPO >8 hours - Is Patient ?: No Home Medications and Allergies Home Medications: Ambulatory Orders No Known Home Medications 08/05/23 No Known Home Medications 08/05/23 Allergies/Adverse Reactions: Allergies Allergy/AdvReac Type Severity Reaction Status Date / Time lidocaine Allergy Unknown Hives Verified 08/05/23 12:38 Anes History & Medical History - Anesthetic History Anesthesia Complications: reports: No previous complications Family history of Anesthesia Complications: Denies Family history of Malignant Hyperthermia: Denies - Medical History Cardiovascular: reports: Arrhythmia Pulmonary: reports: None Gastrointestinal: reports: Cholelithiasis Urinary: reports: Other Musculoskeletal: reports: Osteoarthritis Endocrine/Autoimmune: reports: None Skin: reports: None Smoking Status: Never smoker - Surgical History General: reports: Cholecystectomy Eyes Ears Nose Throat (EENT): reports: Cataracts, Tonsil/Adenoidectomy Gynecologic: reports: section, Tubal ligation Orthopedic: reports: Other Exam General: Alert, Oriented x3, Cooperative Dental: WNL Mouth Openin Fingerbreadth Neck Mobility: Normal Mallampati classification: II Thyromental Distance: 4-6 cm Respiratory: Lungs clear Cardiovascular: Regular rate Plan Anesthesia Type: General, Total IV Consent for Procedure(s) Verified and Reviewed: Yes Code Status: Attempt Resuscitation ASA classification: 2-Mild systemic disease Is this case an emergency?: No
[2023-08-06] MEDS ORDERED: PROPOFOL 500 MG/50 ML 500 MG/50 ML VIAL ONE (08:49)
[2023-08-06] MEDS ORDERED: LACTATED RINGERS 400 ML IV ONE ×2 (09:17)
[2023-08-06 09:33] VITALS: O2SAT 100
[2023-08-06 09:43] VITALS: BP 110/71
--- NOTE | 2023-08-06 14:14 | ANESTHESIA POST OP EVALUATION ---
Anesthesia Post Eval - Post Anesthesia Eval Vitals: Last Vital Signs Temp 36.2 C L 08/06/23 09:33 Pulse 66 08/06/23 09:33 Resp 16 08/06/23 09:33 BP 110/71 08/06/23 09:33 Pulse Ox 100 08/06/23 09:33 O2 Flow Rate CV Function Including HR & BP: Stable Pain Control: Satisfactory Nausea & Vomiting: Negative Mental Status: Baseline Respiratory Status: Airway Patent Hydration Status: Satisfactory Anesthesia Complications: None
== END 2023-08-06 07:29 | disposition home or self-care (01) ==
LOC: SDS 07:28
PROVIDERS: ATTEND Surgery
PROC: 0DBL8ZZ Excision of Transverse Colon, Via Natural or Artificial Opening Endoscopic (ICD-10-PCS; principal; 2023-08-06 08:30)
DX: Z12.11 Encounter for screening for malignant neoplasm of colon (principal); D12.3 Benign neoplasm of transverse colon; Z80.0 Family history of malignant neoplasm of digestive organs
CPT/HCPCS: 45380; J7120